=== PATIENT | female | born 1945 | race Caucasian/White ===

== ENCOUNTER 2022-10-11 09:28 | Emergency (ER) | payer OTHER, MEDICARE, SELFPAY ==
[2022-10-11] VITALS (7 sets, daily range): BP systolic 111–170; BP diastolic 46–74; PULSE 83–91; RESP 16; TEMP 36.4; O2SAT 93–98
--- NOTE | ~2022-10-11 | XR_ITS ---
EXAMINATION: XR chest 1V DATE: 10/11/2022 10:46 INDICATION: Type 2 diabetes. Preop. TECHNIQUE: A single frontal view of the chest was obtained. COMPARISON: Chest 2 views 02/18/2004 FINDINGS: There is a diffuse interstitial pattern in the lungs, consistent mild pulmonary edema. No p leural effusion or pneumothorax. Cardiomegaly is noted. There are old healed rib fractures bilaterall y. There are changes of posterior fusion procedure in thoracic spine. IMPRESSION: 1. Mild pulmonary edema. 2. Cardiomegaly. Reviewed, dictated and finalized at location A.
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
[2022-10-11 09:42] LABS: Glucose Point of Care 166 mg/dl (65-105)
--- NOTE | 2022-10-11 10:18 | ED.FALL ---
HPI - Fall General Chief Complaint: Fall <BRITTANY Chapa Last Filed: 10/11/22 11:23> Stated Complaint: ground level fall at work, right thigh pain <BRITTANY Chapa Last Filed: 10/11/22 11:23> Source: patient <BRITTANY Chapa Last Filed: 10/11/22 11:23> Mode of arrival: EMS <BRITTANY Chapa Last Filed: 10/11/22 11:23> Limitations: no limitations <BRITTANY Chapa Last Filed: 10/11/22 11:23> History of Present Illness HPI Narrative: Patient is a 76-year-old female who presents to the ED via EMS with report of a fall. Patient reports she was at work when she fell trying to walk through the door. She states her legs became tangled against the door. She fell onto her right side, landing on her right hip with her right leg tangled under her left leg. Denied HI/LOC. She was unable to get up off the ground or bear weight on her legs afterwards. She complains of pain to her right inner thigh/groin. She did experience vomiting in route to the ED, which she states typically occurs when she is hungry and takes her medicines on an empty stomach. She did not eat breakfast this morning. She does take medication for diabetes mellitus. Blood glucose 166 upon arrival to ED. Patient denies any current nausea or abdominal pain. Denies any other concerns. Denies numbness or tingling in the right leg. <BRITTANY Chapa Last Filed: 10/11/22 11:23> Related Data Allergies/Adverse Reactions: Allergies Allergy/AdvReac Type Severity Reaction Status Date / Time Penicillins Allergy Unknown Unknown Verified 10/11/22 09:44 <BRITTANY Chapa Last Filed: 10/11/22 11:23> Review of Systems Review of Systems: CONSTITUTIONAL: Denies fever, chills, or sweats. CARDIOVASCULAR: Denies chest pain. RESPIRATORY: Denies dyspnea. GASTROINTESTINAL: See HPI. GENITOURINARY: Denies dysuria or hematuria. SKIN: Denies rash or itching. MUSCULOSKELETAL: See HPI. NEUROLOGIC: Denies head injury, LOC, tingling, numbness, or weakness. <Alisha Trimble PA-C - Last Filed: 10/11/22 11:23> All systems reviewed & are unremarkable except as noted in HPI and below <Alisha Trimble PA-C - Last Filed: 10/11/22 11:23> PMFSH Past Medical History Medical History: Medical History Hypothyroidism (acquired) Pure hypercholesterolemia, unspecified Type 2 diabetes mellitus with hyperglycemia <Alisha Trimble PA-C - Last Filed: 10/11/22 11:23> Family History Family History: Family History (Updated 08/05/16 @ 23:56 by DOCTOR UNKNOWN) Mother Hypertension Father Family history of malignant neoplasm, Onset Age: 73 Patient's father is Other Family history of hearing loss Family history of mental disorder Family history of thyroid disease <Alisha Trimble PA-C - Last Filed: 10/11/22 11:23> Social History Social History: Social History Smoking status: Former smoker Second hand tobacco smoke exposure: No Smoking end date: 05/01/70 Alcohol intake: current <Alisha Trimble PA-C - Last Filed: 10/11/22 11:23> Exam Narrative: GENERAL: Well appearing, well-nourished, non-toxic, in no acute distress. HEAD: Normocephalic, atraumatic. NECK: Supple. No adenopathy, no masses. RESPIRATORY: Airway patent, respirations nonlabored. Clear to auscultation bilaterally, no rales, rhonchi, wheezing. CARDIOVASCULAR: Regular rate and rhythm without murmurs, rubs, or gallops. DP and PT pulses 2+ and equal bilaterally. ABDOMINAL: Soft, no significant tenderness throughout abdomen, nondistended, no hepatosplenomegaly. Normoactive BS. Ventral hernia present, semi-reducible, nontender. MUSCULOSKELETAL: Limited range of motion of right lower extremity due to pain, patient ho
--- NOTE | 2022-10-11 11:10 | PC.NURSE ---
after extensive discussion with pa pt consents to iv placement. at bedside. transfer to [place] in progress per pt request.
[2022-10-11] MEDS: ONDANSETRON INJ 4 MG/2 ML VIAL IV PUSH (11:15)
[2022-10-11] MEDS: MORPHINE SULFATE (*CRX) 4 MG/ML INJ IV PUSH (11:15)
[2022-10-11 11:30] LABS: Basophils Absolute Auto 0.1 K/mm3 (0.0-0.1); Basophils Percent Auto 0.6 % (0.2-1.2); Eosinophils Absolute Auto 0.1 K/mm3 (0-0.3); Eosinophils Percent Auto 1.5 % (0-4.4); Hematocrit 33.4 % (37.0-47.0); Hemoglobin 10.7 g/dL (12.0-15.0); Immature Granulocyte Absolute 0.08 K/mm3 (0.00-0.031); Immature Granulocyte Percent A 0.9 % (0-0.5); Lymphocytes Absolute Auto 0.75 K/mm3 (0.9-3.2); Lymphocytes Percent Auto 8.5 % (18.3-44.2); Mean Corpuscular Volume 93.6 fl (80-100); Mean Platelet Volume 10.9 fl (7.4-10.4); Monocytes Absolute Auto 0.6 K/mm3 (0.1-0.6); Monocytes Percent Auto 7.3 % (2.6-8.5); Neutrophils Absolute Auto 7.2 K/mm3 (1.3-6.7); Neutrophils Percent Auto 81.2 % (45.5-73.1); Platelet Count Result 446 k/mm3 (150-375); Red Blood Count 3.57 M/mm3 (4.2-5.4); Red Cell Distribution Width 14.3 % (11.5-14.5); White Blood Count 8.8 K/mm3 (4.5-10.0)
--- NOTE | 2022-10-11 12:44 | PC.NURSE ---
continue waiting [facility] for transport to [facility].
== END 2022-10-11 13:01 | disposition short-term general hospital (02) ==
PROVIDERS: Emergency Provider Physician Assistant
DX: S72.141A Displaced intertrochanteric fracture of right femur, initial encounter for closed fracture (principal); E03.9 Hypothyroidism, unspecified; E78.00 Pure hypercholesterolemia, unspecified; E11.9 Type 2 diabetes mellitus without complications; Z87.891 Personal history of nicotine dependence; Z79.84 Long term (current) use of oral hypoglycemic drugs; M16.0 Bilateral primary osteoarthritis of hip; I51.7 Cardiomegaly; J81.1 Chronic pulmonary edema; W18.39XA Other fall on same level, initial encounter
CPT/HCPCS: 36415; 71045; 73502; 82948; 85025; 96374; 96375; 99285; J2270; J2405

== ENCOUNTER 2023-02-02 17:46 | Emergency (ER) | payer OTHER, MEDICARE, SELFPAY ==
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
[2023-02-02 17:44] VITALS: BP 145/66; PULSE 88; RESP 22; TEMP 36.7; O2SAT 100
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
[2023-02-02 18:48] LABS: Basophils Absolute Auto 0.1 K/mm3 (0.0-0.1); Basophils Percent Auto 0.4 % (0.2-1.2); Eosinophils Absolute Auto 0.3 K/mm3 (0-0.3); Eosinophils Percent Auto 2.2 % (0-4.4); Hematocrit 30.7 % (37.0-47.0); Hemoglobin 9.5 g/dL (12.0-15.0); Immature Granulocyte Absolute 0.13 K/mm3 (0.00-0.031); Immature Granulocyte Percent A 1.1 % (0-0.5); Lymphocytes Absolute Auto 0.86 K/mm3 (0.9-3.2); Lymphocytes Percent Auto 7.4 % (18.3-44.2); Mean Corpuscular HGB Conc 30.9 g/dl (32-36); Mean Corpuscular Volume 84.1 fl (80-100); Mean Platelet Volume 10.7 fl (7.4-10.4); Monocytes Absolute Auto 0.8 K/mm3 (0.1-0.6); Neutrophils Absolute Auto 9.5 K/mm3 (1.3-6.7); Neutrophils Percent Auto 81.9 % (45.5-73.1); Platelet Count Result 460 k/mm3 (150-375); Red Blood Count 3.65 M/mm3 (4.2-5.4); Red Cell Distribution Width 15.3 % (11.5-14.5); White Blood Count 11.6 K/mm3 (4.5-10.0)
[2023-02-02 18:57] LABS: Alanine Aminotransferase 35 U/L (6-35); Albumin Level 3.3 g/dL (3.5-5.1); Alkaline Phosphatase 148 U/L (38-126); Anion Gap 7 mmol/L (8-16); Aspartate Amino Transferase 64 U/L (14-36); Bilirubin,Total 0.6 mg/dL (0.2-1.3); Blood Urea Nitrogen 15 mg/dL (7-17); Calcium 8.5 mg/dL (8.4-10.2); Carbon Dioxide 28 mmol/L (22-30); Chloride 100 mmol/L (98-107); Estimated Glomerular Filt Rate > 60; Glucose 149 mg/dL (65-110); Potassium 3.8 mmol/L (3.4-5.0); Sodium 135 mmol/L (137-145)
[2023-02-02 18:58] LABS: INR 1.1; Prothrombin Time 15.1 Seconds (11.1-14.7)
[2023-02-02 18:59] LABS: Partial Thromboplastin Time 32.9 SECONDS (22.3-36.8)
[2023-02-02 19:19] LABS: Estimated Glomerular Filt Rate > 60
[2023-02-02 19:46] VITALS: BP 139/67; PULSE 96; RESP 19; O2SAT 97
[2023-02-02] MEDS: HYDROcodone/acetaminophen (*CRX) 5-325 MG TABLET 1 TAB PO (20:36)
[2023-02-02 20:41] VITALS: BP 132/63; PULSE 93; RESP 19; O2SAT 94
[2023-02-02 20:49] LABS: Glucose Point of Care 137 mg/dl (65-105)
[2023-02-02 21:51] VITALS: PULSE 89; RESP 20; O2SAT 93
[2023-02-02 22:42] VITALS: BP 142/66; PULSE 88; RESP 14; O2SAT 94
[2023-02-03 00:13] VITALS: BP 145/59; PULSE 86; RESP 18; O2SAT 94
[2023-02-03 01:33] VITALS: BP 120/56; PULSE 82; RESP 18; O2SAT 97
[2023-02-03 02:42] VITALS: BP 122/59; PULSE 80; RESP 18; O2SAT 98
== END 2023-02-03 02:45 | disposition short-term general hospital (02) ==
PROVIDERS: Emergency Provider Physician Assistant; PCP Hospitalist
DX: S22.21XA Fracture of manubrium, initial encounter for closed fracture (principal); S22.43XA Multiple fractures of ribs, bilateral, initial encounter for closed fracture; E03.9 Hypothyroidism, unspecified; E78.00 Pure hypercholesterolemia, unspecified; E11.9 Type 2 diabetes mellitus without complications; Z87.891 Personal history of nicotine dependence; K74.60 Unspecified cirrhosis of liver; K76.6 Portal hypertension; R18.8 Other ascites; M47.816 Spondylosis without myelopathy or radiculopathy, lumbar region; M47.812 Spondylosis without myelopathy or radiculopathy, cervical region; M47.814 Spondylosis without myelopathy or radiculopathy, thoracic region; Z98.1 Arthrodesis status; V43.52XA Car driver injured in collision with other type car in traffic accident, initial encounter
CPT/HCPCS: 36415; 70450; 71260; 72125; 72129; 72132; 74177; 80053; 82948; 85025; 85610; 85730; 99285; A9270; L0140; Q9967

== ENCOUNTER 2023-10-15 06:46 | Emergency (ER) | payer MEDICARE, SELFPAY ==
[2023-10-15] VITALS (15 sets, daily range): BP systolic 92–124; BP diastolic 44–66; PULSE 76–84; RESP 12–19; TEMP 36.5; O2SAT 92–98
--- NOTE | 2023-10-15 06:55 | ECG_ITS ---
Test Date: 2023-10-15 07:11:14 Measurements Intervals [place] Rate: 80 P: 54 NV: 160 QRS: 43 QRSD: 150 T: 187 QT: 447 QTc: 517 Interpretive Statements SINUS RHYTHM LEFT BUNDLE BRANCH BLOCK [120+ ms QRS DURATION, 80+ ms Q/S IN V1/V2, 85+ ms R IN I/aVL/V5/V6] No previous ECG available for comparison Electronically Signed On 10-15-2023 13:04:33 CDT by Arnie Alston M.D.
[2023-10-15] MEDS: SODIUM CHLORIDE 0.9% IV 1,000 ML 999 ML IV CONT (07:06)
[2023-10-15 07:17] LABS: Basophils Percent Auto 0.3 % (0.2-1.2); Eosinophils Percent Auto 0.3 % (0-4.4); Hematocrit 31.5 % (37.0-47.0); Hemoglobin 9.9 g/dL (12.0-15.0); Immature Granulocyte Absolute 0.04 K/mm3 (0.00-0.031); Immature Granulocyte Percent A 0.4 % (0-0.5); Lymphocytes Absolute Auto 0.68 K/mm3 (0.9-3.2); Lymphocytes Percent Auto 6.5 % (18.3-44.2); Mean Corpuscular HGB Conc 31.4 g/dl (32-36); Mean Corpuscular Hemoglobin 25.5 pg (26-34); Mean Corpuscular Volume 81.2 fl (80-100); Monocytes Absolute Auto 0.8 K/mm3 (0.1-0.6); Monocytes Percent Auto 7.2 % (2.6-8.5); Neutrophils Percent Auto 85.3 % (45.5-73.1); Platelet Count Result 464 k/mm3 (150-375); Red Blood Count 3.88 M/mm3 (4.2-5.4); Red Cell Distribution Width 17.6 % (11.5-14.5); White Blood Count 10.5 K/mm3 (4.5-10.0)
--- NOTE | 2023-10-15 07:20 | ED.FALL ---
HPI - Fall General Chief Complaint: Fall Stated Complaint: fall / hypotensive Time Seen by Provider: 10/15/23 06:51 History of Present Illness HPI Narrative: 77-year-old female presented emergency department for evaluation [facility]. Apparently patient's blood pressure was running low 100s last night but they did not call ambulance until 630 this morning. Patient states he did have a fall yesterday but denies any pain or injury. Patient has no complaints at this time. Related Data Home Medications Medication Instructions Recorded Confirmed blood sugar diagnostic (Accu-Chek 11/01/22 05/03/23 Guide test strips) blood-glucose meter (Accu-Chek 11/01/22 05/03/23 Guide Glucose Meter) Allergies Allergy/AdvReac Type Severity Reaction Status Date / Time Penicillins Allergy Unknown Unknown Verified 02/02/23 17:54 Review of Systems Review of Systems: All systems reviewed & are unremarkable except as noted in HPI and below PMFSH Past Medical History Medical History (Updated 10/15/23 @ 08:58 by Hank Mai MD) Hypothyroidism (acquired) Major depressive disorder Pure hypercholesterolemia, unspecified Type 2 diabetes mellitus with hyperglycemia Family History Family History Mother Hypertension Father Family history of malignant neoplasm, Onset Age: 73 Patient's father is Other Family history of hearing loss Family history of mental disorder Family history of thyroid disease Social History Social History Smoking status: Former smoker Second hand tobacco smoke exposure: No Smoking end date: 05/01/70 Alcohol intake: current Drinks per week: 1 Substance use: never Substance use type: does not use Spiritual care concerns: No Exam Narrative: APPEARANCE: Cachectic but not toxic HEAD: normocephalic, atraumatic. EYES: PERRLA/EOMI, conjunctivae clear. NOSE: Normal no drainage EARS:TMS clear with good light reflex. THROAT: Pharynx clear, no exudate. NECK: Supple. No adenopathy, no masses. RESPIRATORY: Airway patent, respirations nonlabored. Clear to auscultation bilaterally, no rales, rhonchi, wheezing. CARDIOVASCULAR: Regular rate and rhythm without murmurs rubs or gallops. ABDOMINAL: Soft, nontender, nondistended, normal bowel sounds MUSCULOSKELETAL: Moves all extremities. Strength/ROM intact, No edema, No calf tenderness. NEURO: Alert. Cranial nerves II through XII intact. Grossly intact Course Vital Signs Vital signs: Vital Signs Temperature 97.7 F 10/15/23 06:46 Pulse Rate 81 10/15/23 06:46 Respiratory Rate 18 10/15/23 06:46 Blood Pressure 92/62 L 10/15/23 06:46 Pulse Oximetry 95 10/15/23 06:46 Oxygen Delivery Room Air 10/15/23 06:46 Temperature 97.7 F 10/15/23 06:46 Pulse Rate 76 10/15/23 08:46 Respiratory Rate 14 10/15/23 08:46 Blood Pressure 98/44 L 10/15/23 08:45 Pulse Oximetry 98 10/15/23 07:16 Oxygen Delivery Room Air 10/15/23 06:46 MDM - Fall MDM Narrative Medical decision making narrative: 77-year-old female presents emergency department for evaluation for low blood pressure. Patient's blood pressure was improved with rehydration. Patient was able to ambulate at her baseline. Patient is afebrile with no significant leukocytosis and a hemoglobin similar to her baseline. No significant electrolyte abnormalities. Patient continued to deny any complaints while in the emergency department. Differential Diagnosis Differential diagnosis: Likely other (Orthostatic hypotension) Lab Data Attestation: I reviewed the patient's lab results. 10/15/23 07:07 10/15/23 07:07 Labs: Lab Results 10/15/23 Range/Units 07:07 WBC 10.5 H (4.5-10.0) K/mm3 RBC 3.88 L (4.2-5.4) M/mm3 Hgb 9.9 L (12.0-15.0)
[2023-10-15 07:29] LABS: Alanine Aminotransferase 14 U/L (6-35); Alkaline Phosphatase 158 U/L (38-126); Anion Gap 7 mmol/L (4-12); Aspartate Amino Transferase 38 U/L (14-36); Bilirubin,Total 0.7 mg/dL (0.2-1.3); Blood Urea Nitrogen 22 mg/dL (7-17); Calcium 7.8 mg/dL (8.4-10.2); Carbon Dioxide 25 mmol/L (22-30); Chloride 100 mmol/L (98-107); Estimated Glomerular Filt Rate 43; Glucose 170 mg/dL (65-110); Potassium 3.5 mmol/L (3.4-5.0); Sodium 132 mmol/L (137-145)
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
== END 2023-10-15 10:30 ==
PROVIDERS: Emergency Provider Emergency Medicine; PCP Hospitalist
DX: I95.9 Hypotension, unspecified (principal); E03.9 Hypothyroidism, unspecified; E78.00 Pure hypercholesterolemia, unspecified; E11.9 Type 2 diabetes mellitus without complications; Z87.891 Personal history of nicotine dependence; Z79.84 Long term (current) use of oral hypoglycemic drugs; Z79.01 Long term (current) use of anticoagulants; Z79.899 Other long term (current) drug therapy; I44.7 Left bundle-branch block, unspecified
CPT/HCPCS: 36415; 80053; 85025; 93005; 96360; 96361; 99283; J7030